=== PATIENT | male | born 1960 | race African-American/Black ===

== ENCOUNTER 2017-09-21 18:30 | Emergency (ER) | payer MEDICAID ==
[~2017-09-21] VITALS: Ht 182.9 cm; Wt 90.7 kg
[2017-09-21 18:30] VITALS: BP_SYST 145
--- NOTE | 2017-09-21 18:30 | NUR ---
Patient to ER bed hallway 2 to go for evaluation. Side rails up. Report received from CAROLYN Martinez.
--- NOTE | 2017-09-21 18:32 | NUR ---
Pt was brought in by BLS due to altered mental status. Per EMS, pt was found laying on the ground confused and bystander had called 911. No report of N/V, fever, or trauma. Pt has odor of ETOH on breath. No other injuries/complaints per patient or noted.
--- NOTE | 2017-09-21 18:35 | NUR ---
ER Dr. Hunt at bedside examining patient.
--- NOTE | 2017-09-21 19:05 | NUR ---
Patient wants to leave, appears to be subtly confused. Dr. Hunt assessed the patient and agreed that he did not appear to be able to make decisions regarding leaving. Security called to [facility] de [facility]es[facility].
[2017-09-21] MEDS ORDERED: DIPHENHYDRAMINE INJ 50 MG/ML VIAL IM ONE (19:15)
[2017-09-21] MEDS ORDERED: HALOPERIDOL LACTATE 5 MG/ML VIAL IM ONE (19:15)
--- NOTE | 2017-09-21 19:20 | NUR ---
Patient was verbally descalated, has a family member coming to see him and potientally take custody of him to home. Patient is now agreeable. Security remains in hallway.
--- NOTE | 2017-09-21 19:45 | NUR ---
Patient became hostile and ran out of ER while I was drawing up Haldol and Benadryl. Dr. Hunt and security were present and were not able to descalate him either. We were not able to secure the patient without physical restraint. [facility] was called with a description of the patient.
[2017-09-21 20:00] LABS: BASOPHILS % (AUTO) 0.5 % (0.0-2.0); EOSINOPHILS # (AUTO) 0.1 K/uL (0.0-0.4); EOSINOPHILS % (AUTO) 1.3 % (0.0-4.0); HEMATOCRIT 47.1 % (36-54); HEMOGLOBIN 15.5 g/dL (14.0-18.0); LYMPHOCYTES # (AUTO) 2.2 K/uL (1.0-5.5); LYMPHOCYTES % (AUTO) 30.4 % (20.5-51.5); MEAN CORPUSCULAR HEMOGLOBIN 30 pg (27-31); MEAN CORPUSCULAR HGB CONC 33 % (32-36); MEAN CORPUSCULAR VOLUME 90 fL (79.0-98.0); MONOCYTES # (AUTO) 0.3 K/uL (0.0-1.0); MONOCYTES % (AUTO) 4.6 % (1.7-9.3); NEUTROPHILS # (AUTO) 4.8 K/uL (1.8-7.7); NEUTROPHILS % (AUTO) 63.2 % (40.0-70.0); PLATELET COUNT (AUTO) 265 K/uL (130-430); RED BLOOD CELL COUNT(AUTO) 5.24 MIL/uL (4.2-6.2); RED CELL DISTRIBUTION WIDTH 12.5 % (9.0-15.0); WHITE BLOOD COUNT (AUTO) 7.4 K/uL (4.8-10.8)
[2017-09-21 20:09] LABS: CALCIUM 8.9 mg/dL (8.4-11.0); CREATININE 0.77 mg/dL (0.55-1.30); POTASSIUM 3.6 mmol/L (3.5-5.1)
[2017-09-21 20:14] LABS: ALBUMIN 3.8 g/dL (3.4-4.8); TOTAL BILIRUBIN 0.4 mg/dL (0.0-1.0)
== END 2017-09-21 19:45 | disposition left against medical advice (07) ==
LOC: SED 18:30
DX: F10.129 Alcohol abuse with intoxication, unspecified (principal); M25.562 Pain in left knee; F17.200 Nicotine dependence, unspecified, uncomplicated; Z53.20 Procedure and treatment not carried out because of patient's decision for unspecified reasons
CPT/HCPCS: 36415; 80053; 83605; 83690; 84484; 85025; 87040; 99284; J1200; J1630